=== PATIENT | female | born 1965 | race Caucasian/White ===

== ENCOUNTER → 2016-12-21 | Outpatient (CLI) | payer BC, OTHER ==
[~2016-12-21] MED LIST: ALBUAER2 PO; ASPEC81 PO; BUPR-79 PO; LPT40 PO; LSN5 PO; MONT1TAB3 PO; NXM/40 PO; PLV75 PO; SYMIN/8045 INH; TNR25 PO; TOPI50TA16 PO
== END | disposition home or self-care (01) ==
LOC: C.LABMFLN 07:51
PROVIDERS: ATTEND Family Medicine
DX: M85.80 Other specified disorders of bone density and structure, unspecified site (principal)

== ENCOUNTER → 2017-02-28 | Outpatient (CLI) | payer OTHER ==
[2017-02-28 13:20] LABS: HEMATOCRIT 40.3 % (37-47); MEAN CELL VOLUME 85.4 fL (80-100); MEAN CORPUSCULAR HGB CONC 32.8 g/dl (32-36); MEAN PLATELET VOLUME 10.2 fL (7.4-10.4); PLATELET COUNT 340 K/uL (130-400); RED BLOOD COUNT 4.72 M/uL (4.2-5.4)
[2017-02-28 15:56] LABS: ALT/SGPT 12 U/L (12-78); AST/SGOT 7 U/L (15-37); BLOOD UREA NITROGEN 12 mg/dl (7-18); BUN/CREATININE RATIO 14.8 (10-20); CALCIUM 8.8 mg/dl (8.5-10.1); CARBON DIOXIDE 29 mmol/L (21-32); CHLORIDE 109 mmol/L (98-107); CREATININE 0.84 mg/dl (0.60-1.20); GLUCOSE 100 mg/dl (70-99); SODIUM 143 mmol/L (136-145)
[2017-02-28 16:01] LABS: ALB/GLOB RATIO 0.9 (0.9-2); ALKALINE PHOSPHATASE 141 U/L (45-117); CHOLESTEROL 180 mg/dl (0-200); CHOLESTEROL/HDL RATIO 3.8; HDL CHOLESTEROL 48 mg/dl; LDL CHOLESTEROL CALCULATED 84 mg/dl; TRIGLYCERIDES 241 mg/dl (0-150); VERY LOW DENSITY LIPOPROT CALC 48 mg/dl
== END | disposition home or self-care (01) ==
LOC: C.LABMFLN 07:48
PROVIDERS: ATTEND Physician Assistant
DX: I25.10 Atherosclerotic heart disease of native coronary artery without angina pectoris (principal); E78.00 Pure hypercholesterolemia, unspecified

== ENCOUNTER → 2017-06-20 | Outpatient (CLI) | payer OTHER | END | disposition home or self-care (01) | LOC: C.LABMFLN 16:33 | PROVIDERS: ATTEND Family Medicine | DX: R35.0 Frequency of micturition (principal) ==

== ENCOUNTER → 2017-06-22 | Outpatient (CLI) | payer OTHER ==
[2017-06-22 14:14] LABS: BLOOD UREA NITROGEN 13 mg/dl (7-18); BUN/CREATININE RATIO 11.8 (10-20); CALCIUM 9.1 mg/dl (8.5-10.1); CARBON DIOXIDE 27 mmol/L (21-32); CHLORIDE 108 mmol/L (98-107); CHOLESTEROL 171 mg/dl (0-200); GLUCOSE 107 mg/dl (70-99); POTASSIUM 3.7 mmol/L (3.5-5.1); SODIUM 142 mmol/L (136-145)
[2017-06-22 14:20] LABS: ALT/SGPT 15 U/L (12-78); CHOLESTEROL/HDL RATIO 3.8; HDL CHOLESTEROL 45 mg/dl; TRIGLYCERIDES 190 mg/dl (0-150); VERY LOW DENSITY LIPOPROT CALC 38 mg/dl
== END | disposition home or self-care (01) ==
LOC: C.LABMFLN 08:28
PROVIDERS: ATTEND Family Medicine
DX: I10 Essential (primary) hypertension (principal); I25.10 Atherosclerotic heart disease of native coronary artery without angina pectoris; E78.00 Pure hypercholesterolemia, unspecified; E55.9 Vitamin D deficiency, unspecified

== ENCOUNTER 2020-10-04 08:32 | Observation (INO) ==
--- NOTE | 2020-09-13 15:08 | PAT Medication Instructions ---
Medication Instructions Date of Service September 13, 2020 Home Medications Medication Instructions Recorded cetirizine 10 mg tablet 10 mg PO HS #30 tab 01/16/20 albuterol sulfate 90 mcg/actuation 2 puffs INH Q6H PRN #18 gm 02/02/20 aerosol inhaler fluticasone 250 mcg-salmeterol 50 1 puffs INH BID #60 ea 04/14/20 mcg/dose blistr powdr for inhalation bupropion HCl 300 mg 24 hr tablet, 300 mg PO QAM #30 tab 04/21/20 extended release rizatriptan 10 mg tablet 10 mg PO Q2H PRN #14 tab 06/07/20 metoprolol succinate 100 mg 100 mg PO DAILY #30 tab 07/20/20 tablet,extended release 24 hr prazosin 2 mg capsule 2 mg PO QPM #30 cap 07/20/20 Wheeled Walker #1 ea 08/30/20 nitroglycerin 0.4 mg sublingual 0.4 mg SL Q5M PRN #25 tab 09/10/20 tablet aspirin 81 mg tablet,delayed release 81 mg PO QAM cetirizine 10 mg tablet 10 mg PO HS albuterol sulfate 90 mcg/actuation aerosol inhaler 2 puffs INH Q6H PRN fluticasone 250 mcg-salmeterol 50 mcg/dose blistr powdr for inhalation 1 puffs INH BID bupropion HCl 300 mg 24 hr tablet, extended release 300 mg PO QAM rizatriptan 10 mg tablet 10 mg PO Q2H PRN metoprolol succinate 100 mg tablet,extended release 24 hr 100 mg PO DAILY prazosin 2 mg capsule 2 mg PO QPM amlodipine 5 mg PO PM clopidogrel 75 mg PO QAM esomeprazole magnesium 40 mg PO QAM fluticasone propionate [Allergy Relief (fluticasone)] 50 mcg INTNAS DIRECTED PRN losartan 50 mg PO QAM montelukast 10 mg PO PM paroxetine HCl 20 mg PO QAM topiramate [Topamax] 50 mg PO BID nitroglycerin 0.4 mg sublingual tablet 0.4 mg SL Q5M PRN Continue as directed nitroglycerin 0.4 mg sublingual tablet 0.4 mg SL Q5M PRN (if needed) ASK your prescriber and surgeon clopidogrel 75 mg PO QAM (must be off medication at least 7 days in order to get spinal anesthesia) Take morning of surgery With a small sip of water, OTHERWISE NOTHING TO EAT OR DRINK AFTER MIDNIGHT: aspirin 81 mg tablet,delayed release 81 mg PO QAM albuterol sulfate 90 mcg/actuation aerosol inhaler 2 puffs INH Q6H PRN (use if needed; please bring with you to hospital day of surgery if possible) fluticasone 250 mcg-salmeterol 50 mcg/dose blistr powdr for inhalation 1 puffs INH BID bupropion HCl 300 mg 24 hr tablet, extended release 300 mg PO QAM rizatriptan 10 mg tablet 10 mg PO Q2H PRN (if needed) metoprolol succinate 100 mg tablet,extended release 24 hr 100 mg PO DAILY esomeprazole magnesium 40 mg PO QAM fluticasone propionate [Allergy Relief (fluticasone)] 50 mcg INTNAS DIRECTED PRN (if needed) paroxetine HCl 20 mg PO QAM topiramate [Topamax] 50 mg PO BID Take evening before surgery cetirizine 10 mg tablet 10 mg PO HS albuterol sulfate 90 mcg/actuation aerosol inhaler 2 puffs INH Q6H PRN (if needed) fluticasone 250 mcg-salmeterol 50 mcg/dose blistr powdr for inhalation 1 puffs INH BID rizatriptan 10 mg tablet 10 mg PO Q2H PRN (if needed) prazosin 2 mg capsule 2 mg PO QPM amlodipine 5 mg PO PM fluticasone propionate [Allergy Relief (fluticasone)] 50 mcg INTNAS DIRECTED PRN (if needed) losartan 50 mg PO QAM montelukast 10 mg PO PM topiramate [Topamax] 50 mg PO BID Other Notes If you have any questions please call us at [phone] or [phone] or [phone] or [phone]
--- NOTE | 2020-09-14 08:19 | Anesthesiology Consultation ---
Date of Service September 14, 2020 Assessment & Plan (1) Encounter for pre-operative examination: Chart Review Chart Review: Acceptable Risk for Surgery (pending preop Covid testing ) and Patient seen in Pre Admission Testing Per PAT appt on 09/14/20, patient denies any recent travel. No known Covid positive contacts or Covid related symptoms. Pt scheduled for preop Covid testing 09/28/20 per patient. . Educated on importance of self quarantining, social distancing and wearing mask in public both for the patient and household contacts. Last seen by cardio 07/01/19= CAD s/p proximal PCI- no angina. Continue ASA and Plavix. Plavix can be held for bleeding or procedure (7 days prior ). HTN- BP controlled. Dyslipidemia- continue statin. Abnormal ECHO- wall motion [place] [facility]. F/u in six months. (Had subsequent echo done December 2019showed no apparent wall motion abnormalities. Pt has good functional status. Patient has not recently seen cardio due to Covid.) Teaching & Discussion Pre-Anesthesia Teaching/Discussion Notes: Instructed NPO after midnight before surgery,except medications with 15 cc of water. Medication instructions provided according to the PAT guidelines. History Surgery Operation Date: 10/04/20 13:00 Proposed Procedures p Left Total Knee Arthroplasty - Kunal Weber MD Height/Weight Height: 5 ft Weight: 114.2 kg Allergies Allergy/AdvReac Type Severity Reaction Status Date / Time hydrocodone Allergy Intermediate Nightmare Verified 09/08/20 09:46 Penicillins Allergy Intermediate hives Verified 09/08/20 09:46 trazodone Allergy Intermediate Nightmare Verified 09/08/20 09:46 Medications Home Medications Medication Instructions Recorded Confirmed Last Taken aspirin 81 mg tablet,delayed 81 mg PO QAM #90 tab 06/12/19 09/08/20 Unknown release cetirizine 10 mg tablet 10 mg PO HS #30 tab 01/16/20 09/08/20 Unknown albuterol sulfate 90 mcg/actuation 2 puffs INH Q6H PRN #18 gm 02/02/20 09/08/20 Unknown aerosol inhaler fluticasone 250 mcg-salmeterol 50 1 puffs INH BID #60 ea 04/14/20 09/08/20 Unknown mcg/dose blistr powdr for inhalation bupropion HCl 300 mg 24 hr tablet, 300 mg PO QAM #30 tab 04/21/20 09/08/20 Unknown extended release rizatriptan 10 mg tablet 10 mg PO Q2H PRN #14 tab 06/07/20 09/08/20 Unknown metoprolol succinate 100 mg 100 mg PO DAILY #30 tab 07/20/20 09/08/20 Unknown tablet,extended release 24 hr prazosin 2 mg capsule 2 mg PO QPM #30 cap 07/20/20 09/08/20 Unknown Wheeled Walker #1 ea 08/30/20 09/08/20 Unknown amlodipine 5 mg PO PM 09/08/20 09/08/20 Unknown clopidogrel 75 mg PO QAM 09/08/20 09/08/20 Unknown esomeprazole magnesium 40 mg PO QAM 09/08/20 09/08/20 Unknown fluticasone propionate [Allergy 50 mcg INTNAS DIRECTED PRN 09/08/20 09/08/20 Unknown Relief (fluticasone)] losartan 50 mg PO QAM 09/08/20 09/08/20 Unknown montelukast 10 mg PO PM 09/08/20 09/08/20 Unknown paroxetine HCl 20 mg PO QAM 09/08/20 09/08/20 Unknown nitroglycerin 0.4 mg sublingual 0.4 mg SL Q5M PRN #25 tab 09/10/20 Unknown tablet topiramate 50 mg tablet 50 mg PO .COMPLEX #270 tab 09/14/20 Unknown Past Medical History Medical History Anxiety Asthma WELL CONTROLLED RARE INH USE Benign essential hypertension CAD (coronary artery disease) FOLLOWS MD CARDIO - S/P 1 STENT IN 2016 CKD (chronic kidney disease), stage III Depression Esophageal reflux WELL CONTROLLED AND STABLE Hypercholesterolemia CANNOT TOLERATE STATINS- CURRENTLY DIET CONTROLLED ONLY Migraine INTERMITTENT Exercise / Class Metabolic Activity II 4-5 Yardwork/Stairs/Walk up hill (ONE FLIGHT OF STAIRS - NO CHEST PAIN OR SOB) Past Family History Family History Father Alcoholism Mother Aortic aneurysm Lung cancer Valvular heart disease Unknown Myocardial infarction Past Surgical History Surgical History History of cardiac catheterization 2016 [facility] /2018 [facility] 1 STENT > 2016 History of colonoscopy History of esophagogastroduodenoscopy (EGD) History of heart artery stent 1 IN 2016 History of procedure involving hematological or lymphatic system right leg April 2013 History of tooth extraction S/P right oophorectomy S/P total abdominal hysterectomy S/P wisdom tooth extraction Past Anesthesia History No Hx of Anesthesia Complications and No Family Hx of Anesthesia Complications History of PONV No Hx of PONV and No Hx of Motion Sickness Social History Smoking Status: Never smoker Do You Dip or Chew Tobacco: No Hx Alcohol Use: No Hx Substance Use: No substance use type: does not use Review of Systems Intermittent snoring- had sleep study- no CHRISTOPHER per patient Patient denies chest pain, shortness of breath, dyspnea on exertion, cough, wheezing, palpitations. No hx of seizures, stroke. No hx of blood clots or blood transfusions Physical Exam Vital Signs VITALS BP 146/83 P 68 TEMP 98.4 SP02 95% RESP 16 Constitutional no acute distress ENMT Mouth: no TMJ clicking Thyromental Distance: < 3.5 Finger Breadths (3.0) Mallampati Class: III Lower partial denture Broken and missing teeth on sides and molars on top Neck + short neck and + thick neck; neck extension not limited Respiratory normal respiratory effort; no respiratory distress Auscultation: lungs clear to auscultation bilaterally; no wheezes Cardiovascular Rate/Rhythm: regular rate and regular rhythm Heart Sounds: no murmur Vessels: no carotid bruit Musculoskeletal Spine: no pain with cervical ROM Extremities: extremities normal to inspection Psychiatric Orientation: alert Testing Laboratory Results 09/14/20 08:42 09/14/20 08:42 PT 10.7 Seconds (9.0-12.0) 09/14/20 08:42 INR 1.0 (0.9-1.1) 09/14/20 08:42 APTT 29.3 Seconds (21.0-31.0) 09/14/20 08:42 Blood Type O Positive 09/14/20 08:42 Antibody Screen NEGATIVE 09/14/20 08:42 Electrocardiogram Date: 09/14/20 Findings: + NSR @ (66) Normal EKG. Chest X-Ray Date: 09/14/20 Findings: + NAD Echocardiogram Date: 12/16/19 EF: 55-60% LV Function: normal Other Findings: + diastolic dysfunction (Grade I ) Valvular Disease: + no significant valvular disease Cannot exclude wall motion abnormalities given poor image quality. No RWMA noted. No significant LVH. Cardiac Catheterization Date: 07/20/16 Dominant: Right Left Main (% Stenosis): Normal LAD (% Stenosis): Proximal (65) D1 (% Stenosis): Normal (MLI) Circumflex (% Stenosis): Normal OM1 (% Stenosis): Normal Resolute 3.5x22mm PATI proximal LAD, post dilated with stent balloon.
--- NOTE | 2020-09-14 09:08 | XRay Report ---
XR chest Pre-admission PA/Lat HISTORY: 55 years-old Female pat preoperative exam. No acute chest complaints COMPARISON: Chest radiograph 09/30/2016 TECHNIQUE: PA and lateral views of the chest FINDINGS: Cardiomediastinal and hilar silhouettes are unchanged. There is no pneumothorax, pleural effusion, ai rspace consolidation or overt pulmonary edema. Bones of the chest appear grossly intact. IMPRESSION: No acute process. ACT 112: Negative or not required by law. The above report was generated using voice recognition software. It may contain grammatical, syntax o r spelling errors. Electronically signed by: Donald Collier M.D. 09/14/2020 9:07 AM
[2020-09-14 10:45] LABS: Basophils # (auto) 0.02 K/uL (0-0.2); Basophils % (auto) 0.2 %; Eosinophils # (auto) 0.09 K/uL (0-0.5); Eosinophils % (auto) 1.1 %; Hematocrit (blood only) 41.9 % (37-47); Hemoglobin 13.3 g/dL (12.0-16.0); Immature Granulocytes # (auto) 0.01 K/uL (0.00-0.02); Immature Granulocytes % (auto) 0.1 %; Lymphocytes # (auto) 2.69 K/uL (1.2-3.4); Lymphocytes % (auto) 32.4 %; Mean Corpuscular Hemoglobin 28.2 pg (25-34); Mean Corpuscular Hgb Conc 31.7 g/dL (32-36); Mean Platelet Volume 10.5 fL (7.4-10.4); Monocytes # (auto) 0.51 K/uL (0.11-0.59); Monocytes % (auto) 6.1 %; Neutrophils # (auto) 4.98 K/uL (1.4-6.5); Neutrophils % (auto) 60.1 %; Platelet Count 300 K/uL (130-400); RDW Coefficient of Variation 13.7 % (11.5-14.5); RDW Standard Deviation 44.8 fL (36.4-46.3); Red Blood Count 4.71 M/uL (4.2-5.4)
[2020-09-14 10:59] LABS: Partial Thromboplastin Ratio 1.1; Partial Thromboplastin Time 29.3 Seconds (21.0-31.0); Prothrombin Time 10.7 Seconds (9.0-12.0)
[2020-09-14 11:46] LABS: BUN Creatinine Ratio 11.2 (10-20); C Reactive Protein 1.3 mg/dl (0-0.29); Creatinine Clr Calc Pharmacy 56.5 ml/min; Est GFR (African American) 54.1; Est GFR (Non-African American) 46.7; Potassium 4.1 mmol/L (3.5-5.1)
--- NOTE | 2020-09-14 12:49 | Electrocardiogram Report ---
Test Reason : Blood Pressure : / mmHG Vent. Rate : 066 BPM Atrial Rate : 066 BPM P-R Int : 176 ms QRS Dur : 094 ms QT Int : 422 ms P-R-T Axes : -05 035 015 degrees QTc Int : 442 ms Normal sinus rhythm Normal ECG When compared with ECG of 20-JUL-2016 10:28, MT interval has decreased Criteria for Anteroseptal infarct are no longer Present Confirmed by Guilherme Vallecillo ([id number]) on 09/14/2020 12:49:03 PM Referred By: Kunal Weber Confirmed By:Tomer Vallecillo
--- NOTE | 2020-09-28 18:33 | History and Physical Report ---
DATE OF ADMISSION: 10/04/2020 CHIEF COMPLAINT: Left knee pain and discomfort. HISTORY OF PRESENT ILLNESS: The patient is a 55-year-old white female from [place] who presents for surgical treatment of her left knee. She has got a 5-year history of left knee pain and discomfort, describes it has gotten worse over time. She has seen my partner, Dr. Rivera, a couple years ago, had a shot in her knee and then had some intermittent injections by her primary care doctor over the past several years. This has become less successful. She takes Tylenol, which helps minimally. Her walking tolerance is about 2 blocks. She has difficulty going up and down steps. She has nighttime pain. She does have a history of cardiac stents placed in 2016, but doing well from a cardiac standpoint. She cannot exercise due to her knee pain. She would like to have her left knee fixed. Of note, the patient has a history of significant trauma to the right leg and had multiple surgeries on that side. PAST MEDICAL HISTORY: Significant for, 1. Coronary artery disease, status post multiple stents placed at [facility] in 2016 and on Plavix. 2. Depression. 3. Elevated cholesterol. 4. Hypertension. 5. Obesity with a BMI of 49. 6. Gastroesophageal reflux disease. PAST SURGICAL HISTORY: Includes, 1. Right leg surgery x multiple. 2. Oophorectomy. 3. Abdominal hysterectomy. 4. Oral surgery. 5. Cardiac stent placement. ALLERGIES: PENICILLIN, WHICH CAUSES HIVES. ALSO DESCRIBES ALLERGIES TO HYDROCODONE. CURRENT MEDICINES: Include, 1. Omeprazole 40 mg a day. 2. Amlodipine 5 mg a day. 3. Bupropion 300 mg. 4. Topiramate 50 mg in the morning and 2 at night. 5. Paroxetine 20 mg. 6. Plavix 75 mg. 7. Losartan 50 mg a day. 8. Multivitamins. SOCIAL HISTORY: A 55-year-old white female patient from [place]. She is . Two children. Rare alcohol intake. She does not smoke. FAMILY HISTORY: Noncontributory. REVIEW OF SYSTEMS: Significant for coronary artery disease, status post stent placement, on Plavix. Denies any current chest pain or shortness of breath. No history of DVT or PE. She is obese. PHYSICAL EXAMINATION: GENERAL: Shows a pleasant, middle-aged female. Looks to be in reasonably good health. HEENT: Benign. NECK: Supple, no lymphadenopathy. LUNGS: Clear to auscultation. HEART: Has a regular rate and rhythm. ABDOMEN: Soft, nontender, nondistended. EXTREMITIES: Grossly neurovascularly intact except as follows: Examination of the left knee reveals the patient ambulates with antalgic gait. She does limp on the left side. She has got varus alignment to her knee. Moderate to large knee soft tissue envelope. Small knee effusion. She is tender over the medial joint line. Range of motion is 0-120. No instability. No pain with hip motion. X-RAYS: X-rays of the left knee were reviewed. It shows advanced left knee DJD. She has complete loss of her medial joint space. She has osteophytes of the medial femoral condyle and medial tibial plateau. She has got significant patellofemoral disease. ASSESSMENT: A 55-year-old white female with advanced left knee degenerative joint disease. She has got multiple other comorbidities including hypertension, coronary artery disease, elevated cholesterol, morbid obesity, gastroesophageal reflux disease. She has failed all conservative measures for her knee and would like to have her knee replaced. PLAN: We talked about treatment options. We are going to proceed with knee replacement surgery. The risks and benefits of this procedure were explained to the patient including but not limited to DVT, PE, , infection, neurological injury, vascular injury, bleeding problem, pain, limited range of motion, stiffness, failure to relieve her symptoms, incomplete relief of symptoms, need for further surgery in the future, fracture, leg length inequality, nerve palsy, need for revision surgery. I did talk to her about her comorbidities, particularly her obesity, which increases her risk for infection as well as loosening over time. She is aware of this and would like to proceed. Creatinine is slightly elevated and we will have to be careful with NSAID use postoperatively. This is a chronic elevation and has been present for several years. She will have to hold her Plavix 7 days preop and we will use that for DVT prophylaxis postoperatively.
[~2020-10-04 08:32] MED LIST changes: +ACETAMINOPHEN 500 MG TAB PO SCH; -ALBUAER2 PO; -ASPEC81 PO; +BUPIVACAINE 0.25% 30 ML VIAL ONE; +BUPIVACAINE 0.5 % 5 MG/1 ML PF 10ML VIAL ONE; +BUPIVACAINE LIPOSOME/PF 266 MG, BUPIVACAINE/EPINEPHRINE 50 ML, SODIUM CHLORIDE 0.9% 30 ... INFIL SCH; -BUPR-79 PO; +DEXAMETHASONE SOD INJ 4 MG/ML VIAL ONE; +EPINEPHrine INJ 1 MG/ML AMP ONE; +FAMOTIDINE 20 MG TAB PO SCH; +GABAPENTIN 600 MG DOSE PO SCH; -LPT40 PO; +LR 500ML BOLUS, THEN 15ML/HR IV SCH; +LR 60ML/HR IV SCH; -LSN5 PO; -MONT1TAB3 PO; -NXM/40 PO; -PLV75 PO; -SYMIN/8045 INH; -TNR25 PO; -TOPI50TA16 PO; +TRANEXAMIC ACID 1,000 MG **IV Intra-op IV SCH; +ceFAZolin 2000MG 2,000 MG/15 ML SYR IV SCH
--- NOTE | 2020-10-04 08:53 | History & Physical Bridge Note ---
Date of Service October 04, 2020 History & Physical Bridge Note I have examined the patient, reviewed the History & Physical and in the interval since the performance of the History & Physical I have noted the following changes of clinical significance: no changes noted
[2020-10-04] MEDS ORDERED: PROPOFOL IV EMULSION 10 MG/ML 20 ML VIAL IV ONE (09:41)
[2020-10-04] MEDS ORDERED: LIDOCAINE HCL 2% 2 ML VIAL/AMP(20MG/ML) INFIL ONE (09:41)
[2020-10-04] MEDS ORDERED: BACITRACIN INJ 50,000 UNIT VIAL ONE (09:41)
[2020-10-04] MEDS ORDERED: BUPIVACAINE LIPOSOME 1.3% 266 MG/20 ML VIAL ONE (09:41)
[2020-10-04] MEDS ORDERED: MIDAZOLAM HCL 1 MG/ML 2ML VIAL ONE ×3 (09:41→10:55)
[2020-10-04] MEDS ORDERED: SODIUM CHLORIDE 0.9% PF 50 ML VIAL ONE (09:41)
[2020-10-04] MEDS ORDERED: fentaNYL citrate 100 MCG/2 ML VIAL ONE (09:42)
[2020-10-04] MEDS ORDERED: BUPIVACAINE 0.25% 30 ML VIAL ONE (09:44)
[2020-10-04] MEDS ORDERED: EPINEPHrine INJ 1 MG/ML AMP ONE (09:44)
[2020-10-04] MEDS ORDERED: fentaNYL citrate 100 MCG/2 ML VIAL IV PRN (10:34)
[2020-10-04] MEDS ORDERED: ATROPINE SULFATE 0.1 MG/ML 10ML SYR IV PRN (10:34)
[2020-10-04] MEDS ORDERED: ONDANSETRON INJ 2 MG/ML 2 ML VIAL IV PRN ×2 (10:34→14:20)
[2020-10-04] MEDS ORDERED: ePHEDrine sulfate 50 MG/ML AMP IV PRN (10:34)
--- NOTE | 2020-10-04 12:53 | Post Operative Brief Note ---
PG Immediate Post Op with CF Date of Surgery October 04, 2020 Pre & Post Diagnosis Operation Date: 10/04/20 10:40 Pre-Op Diagnosis: Left Knee DJD Post-Op Diagnosis: Left Knee DJD I identified the patient and participated in the time-out.: Yes Procedure Operation Date: 10/04/20 10:40 Actual Procedures p Left Total Knee Arthroplasty(Left) - Kunal Weber MD Surgeon Kunal Weber MD Supervisor [employer] Minor, PAC Estimated Blood Loss 50 Findings Consistent with Post-Op Diagnosis Fluids 1400 cc Specimens Specimen Description: Permanent Specimen: A) Left Knee Bone and Tissue Drains Nichols Catheter Anesthesia Type Spinal MAC Complications none Disposition Accompanied Patient To Recovery: Yes Disposition: Recovery Room
--- NOTE | 2020-10-04 13:25 | XRay Report ---
XR knee LT 1 or 2V routine HISTORY: 55 years-old Female Surgical Post Op left knee total joint arthroplasty COMPARISON: None TECHNIQUE: 2 views of the left knee FINDINGS: Left knee total joint arthroplasty and patella resurfacing. Satisfactory alignment without acute frac ture or unexpected opaque foreign body. Anterior midline skin bozena are noted along with expected p ostsurgical soft tissue swelling and deep tissue air with surgical drainage catheter. IMPRESSION: Left knee total joint arthroplasty with expected postoperative changes. ACT 112: Negative or not required by law. The above report was generated using voice recognition software. It may contain grammatical, syntax o r spelling errors. Electronically signed by: Donald Collier M.D. 10/04/2020 1:23 PM
--- NOTE | 2020-10-04 13:43 | Anesthesiology Progress Note ---
Date of Service October 04, 2020 Anesthesia Post Procedure Vital Signs Vital Signs: Temp Pulse Pulse Resp BP BP Pulse Ox 10/04/20 13:30 74 15 137/84 92 10/04/20 13:15 36.5 C 68 15 128/78 93 10/04/20 13:05 67 14 126/80 93 10/04/20 12:55 36.3 C L 76 17 127/76 92 10/04/20 09:32 76 20 143/92 H 97 10/04/20 08:58 36.8 C 73 20 163/93 H 97 Transfer of Care Handoff Completed per policy Notes Mental Status: alert / awake / arousable Patient Amnestic to Procedure: Yes Nausea / Vomiting: adequately controlled Pain: adequately controlled Airway Patency, RR, SpO2: stable & adequate BP & HR: stable & adequate Hydration State: stable & adequate Neuraxial Anesthesia: was administered and sensory block is resolving Anesthetic Complications: no major complications apparent
[2020-10-04] MEDS ORDERED: NITROGLYCERIN SL 0.4 MG/TAB TAB SL PRN (13:46)
[2020-10-04] MEDS ORDERED: ALBUTEROL HFA 8 GM INHALER INH PRN (14:06)
[2020-10-04] MEDS ORDERED: MAGNESIUM HYDROXIDE SUSP 30 ML UDC PO PRN (14:20)
[2020-10-04] MEDS ORDERED: ALUMINUM/MAGNESIUM SUSP 30 ML UDC PO PRN (14:20)
[2020-10-04] MEDS ORDERED: diphenhydrAMINE Capsule 25 MG CAP PO PRN (14:20)
[2020-10-04] MEDS ORDERED: METOCLOPRAMIDE HCL INJ 5 MG/ML 2 ML VIAL IV PRN (14:20)
[2020-10-04] MEDS ORDERED: NALOXONE HCL 0.4 MG/1 ML VIAL/CARP IV PRN (14:20)
[2020-10-04] MEDS ORDERED: NO NSAIDS PRN (14:20)
[2020-10-04] MEDS ORDERED: bisacodyL 10 MG SUPP PR PRN (14:20)
[2020-10-04] MEDS: SODIUM CHLORIDE 0.9% 1000ML 1,000 ML IV SCH ×2 (14:50→23:57)
[2020-10-04] MEDS: ACETAMINOPHEN 500 MG TAB PO SCH ×2 (14:51→21:23)
[2020-10-04] MEDS: Scopolamine CHECK PATCH PLACEMENT SCH ×2 (15:57→23:57)
[2020-10-04] MEDS: ASCORBIC ACID 500 MG TAB PO SCH (16:54)
[2020-10-04] MEDS: FERROUS GLUCONATE 324 MG TAB PO SCH (16:54)
--- NOTE | 2020-10-04 17:38 | Operative Report ---
Post Operative Report Pre & Post Diagnosis Operation Date: 10/04/20 10:40 Pre-Op Diagnosis: Left Knee DJD Post-Op Diagnosis: Left Knee DJD I identified the patient and participated in the time-out.: Yes Procedure Operation Date: 10/04/20 10:40 Actual Procedures p Left Total Knee Arthroplasty(Left) - Kunal Weber MD Surgeon Kunal Weber MD Chip Person Minor, PAC Estimated Blood Loss 50 Findings Consistent with Post-Op Diagnosis Operative findings revealed advanced left knee DJD. She had extensive grade 4 disease of the medial and patellofemoral compartments. She had a large knee joint effusion. She had a varus deformity to her knee. Osteophytes in all 3 compartments. Fluids 1400 cc. Specimens Left knee sent for pathology. Drains None. Anesthesia Type Spinal MAC Complications none Disposition Disposition: Recovery Room Indications Patient is a 55-year-old female with multiple multiple medical comorbidities including a significant obesity with a BMI of 49 said a several year history of increasing bilateral knee pain discomfort left side greater than right. She failed all conservative measures. She elected proceed with surgical treatment. Description of Procedure Operative implants consisted of: 1. Biomet Vanguard size 60 left posterior stabilized femoral component. 2. Biomet size 67 tibial tray. 3. 12 mm posterior stabilized polyethylene insert. 4. 28 x 8 all polypatella. The patient was taken to the operating identified placed on the operating table supine position but all contact areas were properly padded. IV antibiotics 5 by anesthesia team. A spinal anesthetic and abductor canal block had been provided in the holding area. Nichols catheter was placed in sterile fashion. Left thigh turn was then placed in the left lower extremities and prepped and draped in usual sterile fashion. The left leg was elevated exsanguinated with use of an Esmarch interspace at 3 mmHg. An anterior approach left knee was then performed to longitudinal incision centered over the patella. Sharp dissection was carried through subcutaneous tissue down the extensor mechanism. Medial parapatellar arthrotomy incision was made. Some subperiosteal dissection was carried out medially. The fat pad was resected from each patella tendon. Lateral patellofemoral ligament was released. Patella was subluxated laterally and the knee was flexed. The osteophytes were taken off distal femur. The ACL and PCL were then released and distal femur the tibia subluxated anteriorly. The external tibial alignment jig was then placed in the interface the tibia and adjusted 14 mm medially. Proximal tibial cut was made remove about a millimeter or 2 of bone from the most efficient aspect the medial till plateau. Some osteophytes were taken off medial and posterior medially. The tibia sized to a size 67. Attention drawn the femur. The distal femur was entered with a sharp drop with intramedullary canal was suction. A left 5 degree valgus cutting guide was placed. The distal femoral cutting block was pinned in place. Distal femoral cut was made to take an additional 3 mm of bone off distal femur. Femur was then sized to a size 60. The AP cutting block was pinned parallel to the epicondylar axis which was 4 degrees of external rotation. The anterior cut, anterior chamfer, posterior cut, posterior chamfer cuts were made. Box cutting guide was placed in a just slight lateral box cut was made. The knee was flexed. The remnants of medial lateral menisci were excised. The osteophytes were taken off the posterior aspect of the femur. A trial femoral component was placed. The tibial tray was pinned in maximum external rotation and the drill and stem punch used to create defect in proximal to for the tibial tray. Knee was then trialed and the 12 mm insert fit most appropriately. Attention drawn the patella. The patella was cleaned of all soft tissues. Patella thickness measured 18 mm and was cut down to 12. Was sized to a size 28 patella. The locals were drilled for the 28 patella. The lateral osteophyte is moved. Patella button was placed. Knee was taken through range of motion patella tracked nicely with no thumbs test. Attention drawn to place the permanent components. All trial components were removed. Bone plug was placed in the distal femur limit blood loss put a double batch Palacos G cement was mixed. Biomet Vanguard size 60 left posterior stabilized femoral component, size 67 tibial tray, 12 mm posterior stabilized polyethylene insert, and a 28 x 8 all polypatella were then cemented in place. Knee was brought out in full extension total cement hardened. Final cement checkup then performed. The pericapsular tissues were injected with total 100 cc of a combination of 20 cc of Exparel, 30 cc normal saline, 50 cc of quarter percent Marcaine with epinephrine. Patient did receive 1 g tranexamic acid per the turn was let down for final tourniquet time of 63 minutes. Hemostasis reduced electrocautery. Extensor mechanism closed with combination 1 PDS suture #1 Vicryl suture in [id number] fashion. Extensor mechanism checked found to be intact the subcutaneous tissue then closed with 2 Dexon suture in a buried interrupted fashion skin was closed skin bozena. Leg was then cleaned and dried a sterile dressing was Xeroform, 4 x 4's, sterile cast padding, Tito bandage were applied. Patient then transferred to the recovery in stable condition. Patient tolerated procedure well and there were no complications. Hernan Hay, my physician electrician station assistant, was present for the entire procedure. His assistance was required and essential for proper patient positioning, prepping and draping, surgical exposure, performing the technical details of the operation, placement the implants, closure of the wound, and placement of the sterile bandage. I attest to the content of the Intraoperative Record and any orders documented therein. Any exceptions are noted below.
[2020-10-04] MEDS: ceFAZolin 2000MG 2,000 MG/15 ML SYR IV SCH (18:21)
[2020-10-04] MEDS: HYDROmorphone HCL 2 MG TAB PO PRN (18:25)
[2020-10-04] MEDS ORDERED: TRANEXAMIC ACID / 0.7% NACL 1,000 MG/100 ML BAG IV SCH (19:00)
[2020-10-04] MEDS ORDERED: FLUTICASONE PROPIONATE NA SPR 16 GM BTL NAE PRN (21:00)
[2020-10-04] MEDS: DOCUSATE SODIUM 100 MG CAP PO SCH (21:23)
[2020-10-04] MEDS: SENNA 8.6 MG TAB PO SCH (21:23)
[2020-10-04] MEDS: TOPIRAMATE 50 MG TAB PO SCH (21:24)
[2020-10-04] MEDS: amLODIPine BESYLATE 5 MG TAB PO SCH (21:24)
[2020-10-04] MEDS: MONTELUKAST SODIUM 10 MG TABLET PO SCH (21:26)
[2020-10-04] MEDS: CETIRIZINE HCL 10 MG TABLET PO SCH (21:27)
[2020-10-04] MEDS: TAPENTADOL HCL ER 50 MG TABCR PO SCH (21:30)
[2020-10-05] MEDS: HYDROmorphone HCL 2 MG TAB PO PRN ×3 (00:02→11:47)
[2020-10-05] MEDS: ceFAZolin 2000MG 2,000 MG/15 ML SYR IV SCH (03:23)
[2020-10-05 06:01] LABS: Hematocrit (blood only) 36.7 % (37-47); Hemoglobin 11.8 g/dL (12.0-16.0); Mean Corpuscular Hemoglobin 28.6 pg (25-34); Mean Corpuscular Hgb Conc 32.2 g/dL (32-36); Mean Corpuscular Volume 88.9 fL (80-100); Mean Platelet Volume 10.1 fL (7.4-10.4); Platelet Count 318 K/uL (130-400); RDW Coefficient of Variation 13.4 % (11.5-14.5); RDW Standard Deviation 43.7 fL (36.4-46.3); Red Blood Count 4.13 M/uL (4.2-5.4); White Blood Count 14.11 K/uL (4.8-10.8)
[2020-10-05] MEDS: ACETAMINOPHEN 500 MG TAB PO SCH ×3 (06:05→21:12)
[2020-10-05 06:32] LABS: BUN Creatinine Ratio 11.8 (10-20); Creatinine Clr Calc Pharmacy 67.6 ml/min; Est GFR (African American) 67.2; Potassium 3.6 mmol/L (3.5-5.1)
[2020-10-05] MEDS: MULTIVITAMIN TAB PO SCH (08:37)
[2020-10-05] MEDS: PARoxetine HCL 20 MG TAB PO SCH (08:38)
[2020-10-05] MEDS: DOCUSATE SODIUM 100 MG CAP PO SCH ×2 (08:38→21:12)
[2020-10-05] MEDS: METOPROLOL SUCC 50MG EXT REL TAB PO SCH (08:38)
[2020-10-05] MEDS: FLUTICASONE/VILANTEROL 200/25MCG 14 PUFFS/INHALER INH SCH (08:38)
[2020-10-05] MEDS: PANTOprazole 40 MG TAB PO SCH (08:38)
[2020-10-05] MEDS: FERROUS GLUCONATE 324 MG TAB PO SCH ×2 (08:38→17:21)
[2020-10-05] MEDS: LOSARTAN POTASSIUM 50 MG TAB PO SCH (08:39)
[2020-10-05] MEDS: buPROPion XL 300 MG TABCR PO SCH (08:39)
[2020-10-05] MEDS: ASPIRIN 81 MG ECTAB PO SCH (08:39)
[2020-10-05] MEDS: TOPIRAMATE 50 MG TAB PO SCH ×2 (08:39→21:11)
[2020-10-05] MEDS: ASCORBIC ACID 500 MG TAB PO SCH ×2 (08:39→17:21)
[2020-10-05] MEDS: HYDROmorphone INJ 0.5 MG/0.5 ML SYR IV PRN ×3 (08:41→23:34)
[2020-10-05] MEDS: Scopolamine CHECK PATCH PLACEMENT SCH ×3 (08:42→23:31)
[2020-10-05] MEDS: TAPENTADOL HCL ER 50 MG TABCR PO SCH ×2 (08:42→21:12)
[2020-10-05] MEDS: CLOPIDOGREL BISULFATE 75 MG TAB PO SCH (12:33)
--- NOTE | 2020-10-05 15:11 | Progress Notes ---
DATE: 10/05/2020 SUBJECTIVE: A 55-year-old white female postoperative day 1 from a left knee replacement. Had a pretty miserable night. Quite a bit of pain. Seems to be doing a little bit better this morning. No chest pain or shortness of breath. Not feeling dizzy or lightheaded. Just knee pain. OBJECTIVE: VITAL SIGNS: Temperature 37.0. Vital signs stable. GENERAL: Shows a pleasant, middle-aged female. She is lying in bed. Looks a little bit uncomfortable but not terrible. LUNGS: Clear to auscultation. HEART: Has a regular rate and rhythm. ABDOMEN: Soft, nontender, nondistended. EXTREMITIES: Grossly neurovascularly intact except as follows. Examination of the left lower extremity reveals the leg to be well aligned. She can dorsiflex and plantarflex her foot appropriately. She is neurologically intact. LABORATORY DATA: Hemoglobin is 11.8. Hematocrit 36.7. White cell count is 14.11. Her electrolytes are stable. Creatinine is actually improved at 1.07. ASSESSMENT: A 55-year-old white female postop day 1 from a left knee replacement. Having quite a bit of pain. The Dilaudid is not working for her. We will try and change her pain meds. We may put on a little bit of Toradol as well as her creatinine seems to be improved. PLAN: 1. DVT prophylaxis including thigh-high TEDs, SCDs, and aspirin twice a day. 2. PT/OT. Weight bear as tolerated. Left total knee protocol. 3. Pain control. We will adjust her pain medicines around today and see if we can make her more comfortable. 4. Disposition: She is planning to be discharged to home with some home health when medically stable and pain controlled.
[2020-10-05] MEDS: KETOROLAC TROMETHAMINE 15 MG/ML VIAL IV SCH ×2 (15:24→21:11)
[2020-10-05] MEDS: oxyCODONE HCL IR 5 MG TAB (IMMEDIATE RELEASE) PO PRN ×2 (15:27→19:46)
[2020-10-05] MEDS: CETIRIZINE HCL 10 MG TABLET PO SCH (21:10)
[2020-10-05] MEDS: amLODIPine BESYLATE 5 MG TAB PO SCH (21:12)
[2020-10-05] MEDS: MONTELUKAST SODIUM 10 MG TABLET PO SCH (21:12)
[2020-10-05] MEDS: SENNA 8.6 MG TAB PO SCH (21:12)
[2020-10-06] MEDS: KETOROLAC TROMETHAMINE 15 MG/ML VIAL IV SCH ×2 (04:03→10:13)
[2020-10-06] MEDS: ACETAMINOPHEN 500 MG TAB PO SCH (05:20)
[2020-10-06] MEDS: TOPIRAMATE 50 MG TAB PO SCH (08:16)
[2020-10-06] MEDS: PARoxetine HCL 20 MG TAB PO SCH (08:16)
[2020-10-06] MEDS: ASPIRIN 81 MG ECTAB PO SCH (08:16)
[2020-10-06] MEDS: DOCUSATE SODIUM 100 MG CAP PO SCH (08:16)
[2020-10-06] MEDS: LOSARTAN POTASSIUM 50 MG TAB PO SCH (08:16)
[2020-10-06] MEDS: CLOPIDOGREL BISULFATE 75 MG TAB PO SCH (08:16)
[2020-10-06] MEDS: MULTIVITAMIN TAB PO SCH (08:16)
[2020-10-06] MEDS: TAPENTADOL HCL ER 50 MG TABCR PO SCH (08:17)
[2020-10-06] MEDS: buPROPion XL 300 MG TABCR PO SCH (08:17)
[2020-10-06] MEDS: FERROUS GLUCONATE 324 MG TAB PO SCH (08:17)
[2020-10-06] MEDS: ASCORBIC ACID 500 MG TAB PO SCH (08:17)
[2020-10-06] MEDS: PANTOprazole 40 MG TAB PO SCH (08:17)
[2020-10-06] MEDS: METOPROLOL SUCC 50MG EXT REL TAB PO SCH (08:17)
[2020-10-06 08:18] LABS: BUN Creatinine Ratio 14.8 (10-20); Calcium 8.6 mg/dl (8.5-10.1); Creatinine Clr Calc Pharmacy 47.2 ml/min; Est GFR (African American) 43.6; Est GFR (Non-African American) 37.6; Potassium 3.5 mmol/L (3.5-5.1)
[2020-10-06] MEDS: oxyCODONE HCL IR 5 MG TAB (IMMEDIATE RELEASE) PO PRN (08:18)
[2020-10-06] MEDS: Scopolamine CHECK PATCH PLACEMENT SCH (08:18)
[2020-10-06] MEDS: FLUTICASONE/VILANTEROL 200/25MCG 14 PUFFS/INHALER INH SCH (08:19)
--- NOTE | 2020-10-06 08:29 | Progress Notes ---
DATE: 10/06/2020 SUBJECTIVE: A 55-year-old white female postop day 2 from a left knee replacement. She is doing much better since we changed her pain medicines around. No chest pain or shortness of breath. Not feeling dizzy or lightheaded. Feels ready to go home. OBJECTIVE: VITAL SIGNS: Temperature 36.7. Vital signs stable. GENERAL: Shows a pleasant, middle-aged female. She is sitting up in bed, looks much more comfortable this morning. EXTREMITIES: Examination of the left leg reveals the leg to be well aligned. Dressing is clean, dry and intact. Calf is soft and supple. She is neurologically intact. ASSESSMENT: A 55-year-old white female postop day 2 from a left knee replacement. She is doing much better on the oxycodone. PLAN: 1. DVT prophylaxis including thigh-high TEDs, SCDs, and aspirin twice a day. 2. PT/OT. Weight bear as tolerated. Left total knee protocol. 3. Pain control, doing much better on the current pain regimen. 4. Disposition: Plan to discharge to home with some home health later today.
--- NOTE | 2020-10-14 14:59 | Discharge Summary ---
Date of Service October 14, 2020 Admission HPI Per Admitting Provider Estephania is a 55-year-old white female from [place] who presents for surgical treatment of her left knee. She has got a 5-year history of left knee pain and discomfort, describes it has gotten worse over time. She saw Dr. Rivera a couple years ago, had a shot in her knee and then had some intermittent injections by her primary care doctor over the past several years. This has become less successful. She takes Tylenol, which helps minimally. Her walking tolerance is about 2 blocks. She has difficulty going up and down steps. She has nighttime pain. She does have a history of cardiac stents placed in 2016, but doing well from a cardiac standpoint. She cannot exercise due to her knee pain. She would like to have her left knee fixed. Admission Exam (Per Admitting) ENMT external ear and nose normal, oropharynx normal Neck normal visual inspection Respiratory normal respiratory effort Musculoskeletal Preoperative examination of the left knee reveals the patient ambulates with antalgic gait. She does limp on the left side. She has got varus alignment to her knee. Moderate to large knee soft tissue envelope. Small knee effusion. She is tender over the medial joint line. Range of motion is 0-120. No instability. No pain with hip motion. Skin no rashes, warm and dry Neurologic normal touch/pain/proprioception Psychiatric A+Ox3, euthymic affect Discharge Data Consultations 10/04/20 13:46 Consult Case Management - Discharge Planning Routine Procedures Performed Operation Date: 10/04/20 10:40 Actual Procedures p Left Total Knee Arthroplasty(Left) - Kunal Weber MD Hospital Course (1) Osteoarthritis of left knee: On 10/04/2020 Estephania was admitted to the [facility] to undergo a left total knee arthroplasty by Dr. Weber. She tolerated the procedure procedure well and was taken to recovery before being admitted to the orthopedic floor. Once on the orthopedic floor she was seen by PT and OT begin to work work with her at that time. Postop day #1 she did have significant pain that was unrelieved by her pain meds. Dr. Weber did adjust her pain meds and she seemed to improve. On postop day #2 she was doing better with her pain and was cleared by physical therapy before being discharged to home that day. Discharge Instructions 1. DVT prophylaxis including thigh-high TEDs, SCDs, and aspirin twice a day. 2. PT/OT. Weight bear as tolerated. Left total knee protocol 3. Disposition: She is planning to be discharged to home with home health 4. She will follow-up with Dr. Weber in the office in 2 weeks. Coding Level of Care Code None Diagnoses Osteoarthritis of left knee M17.12
== END 2020-10-06 11:22 | disposition home health service (06) ==
LOC: 3E 08:32 → ASU 08:32